=== PATIENT | female | born 2005 | race Caucasian/White ===

== ENCOUNTER 2024-12-15 12:49 | Emergency (ER) | payer OTHER ==
--- NOTE | 2024-12-15 13:06 | EDPHYS ---
Physician Documentation [facility] Name: Vi Haynes Age: 19 yrs Sex: Female : 2005 Arrival Date: 12/15/2024 Time: 12:49 Bed 8 Private MD: ED Physician Mauricio Jara HPI: 12/15 13:02 This 19 yrs old Female presents to ER via EMS with complaints of Abdominal Pain, sp3 Nausea/Vomiting. 13:02 19-year-old female with history of cyclic vomiting syndrome in the past with marijuana sp3 usage now presents with recurrent vomiting. She denies any marijuana use since she is on probation. She was seen at [facility] yesterday and received a full workup including labs and a CT scan of the abdomen pelvis which were negative. EMS gave Reglan and route to the ED here which has resolved her symptoms. She denies any other symptoms and denies headache, fever, URI symptoms, chest pain, shortness breath, back pain, symptoms, [employer] symptoms, , travel history, known sick contacts, or any other signs or symptoms on ROS at this time.. Historical: - Allergies: 13:02 No Known Allergies; ph - Immunization history:: Adult Immunizations up to date. - Infectious Disease History:: Denies. - Social history:: Smoking status: unknown. ROS: 13:05 Constitutional: Negative for fever, chills, and weight loss, Eyes: Negative for injury, sp3 pain, redness, and discharge, ENT: Negative for injury, pain, and discharge, Neck: Negative for injury, pain, and swelling, Cardiovascular: Negative for chest pain, palpitations, and edema, Respiratory: Negative for shortness of breath, cough, wheezing, and pleuritic chest pain, Back: Negative for injury and pain, MS/Extremity: Negative for injury and deformity, Skin: Negative for injury, rash, and discoloration, Neuro: Negative for headache, weakness, numbness, tingling, and seizure, Psych: Negative for depression, anxiety, suicide ideation, homicidal ideation, and hallucinations, Allergy/Immunology: Negative for hives, rash, and allergies, Endocrine: Negative for neck swelling, polydipsia, polyuria, polyphagia, and marked weight changes, 13:05 All other systems are negative, Exam: 13:05 Constitutional: This is a well developed, well nourished patient who is awake, alert, sp3 and in no acute distress. Head/Face: Normocephalic, atraumatic. Eyes: Pupils equal round and reactive to light, extra-ocular motions intact. Lids and lashes normal. Conjunctiva and sclera are non-icteric and not injected. Cornea within normal limits. Periorbital areas with no swelling, redness, or edema. Neck: Trachea midline, no thyromegaly or masses palpated, and no cervical lymphadenopathy. Supple, full range of motion without nuchal rigidity, or vertebral point tenderness. No Meningismus. Chest/axilla: Normal chest wall appearance and motion. Nontender with no deformity. No lesions are appreciated. Cardiovascular: Regular rate and rhythm with a normal S1 and S2. No gallops, murmurs, or rubs. Normal PMI, no JVD. No pulse deficits. Respiratory: Lungs have equal breath sounds bilaterally, clear to auscultation and percussion. No rales, rhonchi or wheezes noted. No increased work of breathing, no retractions or nasal flaring. Back: No spinal tenderness. No costovertebral tenderness. Full range of motion. Skin: Warm, dry with normal turgor. Normal color with no rashes, no lesions, and no evidence of cellulitis. MS/ Extremity: Pulses equal, no cyanosis. Neurovascular intact. Full, normal range of motion. Neuro: Awake and alert, GCS 15, oriented to person, place, time, and situation. Cranial nerves II-XII grossly intact. Motor strength 5/5 in all extremities. Sensory grossly intact. Cerebellar exam normal. Normal gait. Psych: Awake, alert, with orientation to person, place and time. Behavior, mood, and affect are within normal limits. 13:05 Abdomen/GI: Patient still mildly nauseated. No active vomiting. Abdomen soft with no peritoneal signs., Vital Signs: 13:00 BP 128 / 83; Pulse 72; Resp 18; Temp 97.8; Pulse Ox 100% on R/A; Weight 65.77 kg; ph Height 5 ft. 4 in. ; 13:32 BP 118 / 78; Pulse 71; Resp 18; Temp 98; Pulse Ox 99% on R/A; ph 13:00 Body Mass Index 24.89 (65.77 kg, 162.56 cm) ph MDM: 13:02 Medical Screening Exam initiated sp3 13:05 Data reviewed: vital signs, nurses notes, old medical records. ED course: Outside sp3 records reviewed and demonstrate normal CT scan. Differential diagnosis includes cyclic vomiting syndrome versus viral illness versus other. Symptoms resolved with 1 dose of Reglan given by EMS. We will discharge her home on p.o. Reglan and Zofran ODT with follow-up to GI for potential scope. Vital signs are normal.. Administered Medications: No medications were administered Disposition Summary: 12/15/24 13:06 Discharge Ordered Notes: Location: Home sp3 Condition: Stable sp3 Diagnosis - Cyclic vomiting syndrome, vomiting sp3 Followup: sp3 - With: Private Physician - When: Upon discharge from the Emergency Department - Reason: Continuance of care Discharge Instructions: - Discharge Summary Sheet sp3 - Cyclic Vomiting Syndrome, Adult sp3 Forms: - Work release form ph - Family Work Release ph - Medication Reconciliation Form sp3 - Antibiotic Education sp3 - Prescription Opioid Use sp3 - Patient Portal Instructions sp3 - Leadership Thank You Letter sp3 Prescriptions: - Reglan 10 mg Oral Tablet - take 1 tablet ORAL route every 6 hours take 30 minutes before meals and at sp3 bedtime; 20 tablet; Refills: 0, Product Selection Permitted - ondansetron 8 mg Oral Tablet,disintegrating - take 1 tablet ORAL route every 12 hours; 15 tablet; Refills: 0, Product sp3 Selection Permitted Signatures: Rosalinda Blandon, JAMIL RN Mauricio Krishnan MD MD sp3
--- NOTE | 2024-12-15 13:06 | ER ---
Nurse's Notes [facility] Name: Vi Haynes Age: 19 yrs Sex: Female : 2005 Arrival Date: 12/15/2024 Time: 12:49 Bed 8 Private MD: Diagnosis: Cyclic vomiting syndrome, vomiting Presentation: 12/15 13:00 Chief complaint: EMS states: N/V and generalized abdominal pain, seen at [facility] last ph night, dx w/ cyclic vomiting. Coronavirus screen: Vaccine status: Patient reports being unvaccinated. Ebola Screen: No symptoms or risks identified at this time. Initial Sepsis Screen: Does the patient meet any 2 criteria? No. Patient's initial sepsis screen is negative. Does the patient have a suspected source of infection? No. Patient's initial sepsis screen is negative. Risk Assessment: Do you want to hurt yourself or someone else? Patient reports no desire to harm self or others. Onset of symptoms was December 15, 2024. 13:00 Method Of Arrival: EMS: [facility] 13:00 Acuity: LISET 3 ph Triage Assessment: 13:06 General: Appears in no apparent distress. Behavior is calm, cooperative. Pain: Denies ph pain. Neuro: Level of Consciousness is awake, alert, obeys commands, Oriented to person, place, time, situation. Cardiovascular: Capillary refill < 3 seconds in bilateral fingers Patient's skin is warm and dry. Respiratory: Airway is patent Respiratory effort is even, unlabored, Respiratory pattern is regular, symmetrical. GI: Abdomen is round non-distended, Bowel sounds present X 4 quads. Abd is soft X 4 quads Reports nausea, vomiting. Historical: - Allergies: 13:02 No Known Allergies; ph - Immunization history:: Adult Immunizations up to date. - Infectious Disease History:: Denies. - Social history:: Smoking status: unknown. Screenin:04 [facility] ED Fall Risk Assessment (Adult) History of falling in the last 3 months, ph including since admission No falls in past 3 months (0 pts) Confusion or Disorientation No (0 pts) Intoxicated or Sedated No (0 pts) Impaired Gait No (0 pts) Mobility Assist Device Used No (0 pt) Altered Elimination No (0 pt) Score/Fall Risk Level 0 - 2 = Low Risk Oriented to surroundings, Maintained a safe environment, Hourly rounding (assess needs \T\ fall precautionary measures) done. Abuse screen: Denies threats or abuse. Denies injuries from another. Nutritional screening: No deficits noted. Tuberculosis screening: No symptoms or risk factors identified. Assessment: 13:07 General: SEE TRIAGE ASSESSMENT. ph Vital Signs: 13:00 BP 128 / 83; Pulse 72; Resp 18; Temp 97.8; Pulse Ox 100% on R/A; Weight 65.77 kg; ph Height 5 ft. 4 in. ; 13:32 BP 118 / 78; Pulse 71; Resp 18; Temp 98; Pulse Ox 99% on R/A; ph 13:00 Body Mass Index 24.89 (65.77 kg, 162.56 cm) ph ED Course: 12:58 Patient arrived in ED. ph 13:02 Triage completed. ph 13:02 Mauricio Jara MD is Attending Physician. sp3 13:04 Arm band placed on Patient placed in an exam room. ph 13:06 Patient has correct armband on for positive identification. Bed in low position. Call ph light in reach. Side rails up X 1. Pulse ox on. NIBP on. 13:07 Maintain EMS IV. Dressing intact. Good blood return noted. Site clean \T\ dry. Gauge \T\ ph site: 20 LAC. Flushed with 10 mL NS. 13:26 Rosalinda Blandon, RN is Primary Nurse. ph 13:32 No provider procedures requiring assistance completed. IV discontinued, intact, ph bleeding controlled, No redness/swelling at site. Pressure dressing applied. Administered Medications: No medications were administered Medication: 13:06 VIS not applicable for this client. ph Outcome: 13:06 Discharge ordered by . sp3 13:32 Discharged to home ambulatory, with family, ph 13:32 Condition: good 13:32 Discharge instructions given to patient, Instructed on discharge instructions, follow up and referral plans. medication usage, Demonstrated understanding of instructions, follow-up care, medications, Prescriptions given X 2, 13:33 Patient left the ED. ph Signatures: Rosalinda Blandon, RN RN ph Mauricio Jara MD MD sp3
[2024-12-15 14:18] VITALS: BP 118/78; TEMP 98; O2SAT 99
== END 2024-12-15 13:33 | disposition home or self-care (01) ==
LOC: ER 12:49
DX: R11.15 Cyclical vomiting syndrome unrelated to migraine (principal)
CPT/HCPCS: 99284

== ENCOUNTER 2025-01-27 08:59 | Emergency (ER) | payer OTHER ==
--- OUTSIDE RECORDS SUMMARY | 2025-01-27 09:04 | XMS REPORT | Continuity of Care Document ---
Author Name Unknown Address [address] [facility] [address] [place] [address] [facility] [place] Address [address] [facility] [address] [place] [address] Care Team Providers Care Egg Trayer Name Role Phone JOSE LUIS CHRISTINE, PREETHI Harris Primary Care Physician GATITO YOON Attending Clinician Unavailable KEITH DESIR Attending Clinician Unavailab THERON Hernandez Attending Clinician UnavailDANNA Arrington Attending Clinician Unavailable Kwan_Alex Attending Clinician Unavailable Kena Attending Clinician Unavailable TATYNAA MARES-Lizandro Attending Clinician UnaDAV Yates Attending Clinician Unavailable DEB MOON Attending Clinician Unavailable NILAY SHEPHERD M.D. Attending Clinician Lesa LARISSA Sosa Attending Clinician Unavailable GAMAL LEÓN Attending Clinician Unavailab RAYSHAWN Romero Attending Clinician Unavailable JULES NORTON Attending Clinician Unavailable Eduardo YU Attending Clinician Unavailable MARIOLA MORALES Attending Clinician UnavailLEO Pisano Attending Clinician Unavailable Sarabjit Admitting Clinician Unavailable Shield Admitting Clinician Unavailable Payers Payer Name Policy Type Policy Number Effective Date Expirati on Date Source [facility] [place] [id number] Problems Condition Name Condition Details Condition Category Status Onset Date Resolution Date Last Treatment Date Treating Clinician Comments Source Right lower quadrant pain Right Lower Quadrant Pain Problem Active 2-14 00:00: [facility] Fever with chills Fever with Chills Problem Active 2-13 00:00: 00 [facility] Nausea and vomiting Nausea and Vomiting Problem Active 2-13 00:00: 00 [facility] Right lower quadrant pain Right Lower Quadrant Pain Problem Active 2-13 00:00: 00 [facility] High ankle sprain of right lower extremity, initial encounter High ankle sprain of right lower extremity, initial encounter Problem [id number] Active [facility] Finding of tobacco use and exposure (finding) Finding of tobacco use and exposure (finding) Active Problem 10/12/2019 Medical Group Problem Active 2019-10-12 22:41:06 Bridget Tam Patient encounter status (finding) Patient encounter status (finding) Active Problem 10/12/2019 Medical Group Problem Active 2019-10-12 22:41:06 Bridget Tam Alcoholic gastritis without bleeding Problem [facility] Contusion of right forearm Problem [facility] Contusion of right hand, initial encounter Problem [facility] Cyclic vomiting syndrome Problem [facility] Dermatitis Problem [facility] Closed fracture of distal end of left radius Problem [facility] Molluscum contagiosu m infection Problem [facility] Sprain of ankle Problem [facility] Moderate tetrahydro cannabinol (THC) dependence Problem [facility] Pneumonia (disorder) Pneumonia (disorder) Resolved 03/15/2014 Problem 10/12/2019 Data migrated from [employer] on 05/05/15.<b r/>Data migrated from [employer] on 05/04/15. Medical Group Problem Resolve d 03-15 00:00: 00 2019-10-12 22:41:06 2019-10-12 22:41:06 Bridget Tam History of Past Illness Condition Name Condition Details Condition Category Status Onset Date Resolution Date Last Treatment Date Treating Clinician Comments Source Tobacco use Tobacco use 11/02/2018 05/23/2019 Medical Group Problem 11-02 22:47: 00 2019-05-23 12:33:15 2019-05-23 12:33:15 Bridget Tam Encounter for initial prescripti on of injectable contracept marcus Encounter for initial prescripti on of injectable contracept marcus 11/02/2018 05/23/2019 Medical Group Problem 11-02 22:29: 00 2019-05-23 12:33:15 2019-05-23 12:33:15 Bridget Tam Encounter for surveillan ce of injectable contracept marcus Encounter for surveillan ce of injectable contracept marcus 01/27/2019 9 Medical Group Problem 4-11 19:07: 00 2019-01-29 21:19:42 2019-01-29 21:19:42 Bridget Tam Allergies, Adverse Reactions, Alerts Allergy Name Allergy Type Status Severity Reaction(s) Onset Date Inactive Date Treating Clinician Comments Source No Known Medicati on Allergie s No Known Medicati on Allergie s Active Bridget Tam Social History Social Habit Start Date Stop Date Quantity Comments Source History of tobacco use [facility] Social History 2018-11-02 21:52:38 2018-11-02 21:52:38 Edwin Tam Smoking Status Start Date Stop Date Source Former Smoker [facility] Never smoked tobacco (finding) [facility] Medications Ordered Medication Name Filled Medication Name Start Date Stop Date Current Medication? Ordering Clinician Indication Dosage Frequency Signature (SIG) Comments Components Source Ondansetron Hcl (Zofran *) 4 Mg TAB Ondansetron Hcl (Zofran *) 4 Mg TAB 11-15 13:47: 00 Yes 1 [facility] [employer] a 2018-10 20:17: 00 No 150 mg, Route: IM, Drug form: SUSP, ONCE, Dosing Weight 82.727, kg, Start date: 07/25/19 15:17:00 CDT, Stop date: 07/25/19 15:17:00 CDT Bridget Tam Medroxyprog esterone 04-22 14:21: 00 No 150 mg, Route: IM, Drug form: SUSP, ONCE, Dosing Weight 77.273, kg, Start date: 04/22/19 9:21:00 CDT, Stop date: 04/22/19 9:21:00 CDT Bridget Tam [employer] 01-27 19:09: 00 No 150 mg, Route: IM, Drug form: SUSP, ONCE, Dosing Weight 75.455, kg, Start date: 01/27/19 14:09:00 CDT, Stop date: 01/27/19 14:09:00 CDT Bridget Tam clindamycin 300 mg oral capsule 12-06 21:53: 00 Yes 300 mg = 1 cap, PO, TID, X 10 day, # 30 cap, 0 Refill(s), Pharmacy: [facility] [address] [place], [place] [address]isra parker [place] {21 (Methylpred nisolone 4 MG Oral Tablet [Medrol]) } Pack [Medrol Dosepak] 12-06 21:53: 00 Yes See Instructio ns, as directed on package labeling, # 1 ea, 0 Refill(s), Pharmacy: [facility] [address] [place], [place] [address]isra Tam 24 HR dexmethylph enidate hydrochlori de 25 MG Extended Release Capsule [Focalin] 11-17 23:33: 00 Yes 25 mg = 1 cap, PO, QAM, # 30 cap, 0 Refill(s), given to patient Bridget Souzaann {21 (Methylpred nisolone 4 MG Oral Tablet [Medrol]) } Pack [Medrol Dosepak] 11-17 17:18: 00 No See Instructio ns, PO, Take by mouth as directed on label., # 1 Pack, 0 Refill(s), Pharm[facility]: [facility] Bacitracin (Topical) (Bacitracin ) 500 Unit/Gm OIN Bacitracin (Topical) (Bacitracin ) 500 Unit/Gm OIN 11-12 15:08: 00 Yes 1 [facility] Desonide (Desowen 0.05%) 0.05 % CRE Desonide (Desowen 0.05%) 0.05 % CRE 11-12 15:06: 00 Yes 1 [facility] Hydroxyzine Hcl (Atarax 25 Mg*) 25 Mg TAB Hydroxyzine Hcl (Atarax 25 Mg*) 25 Mg TAB 11-12 15:06: 00 Yes 25 [facility] Methylpredn isolone (Medrol Dosepak *) 1 Pkt PKT Methylpredn isolone (Medrol Dosepak *) 1 Pkt PKT 11-12 15:06: 00 Yes 1 [facility] [employer] a 11-02 22:30: 00 No 150 mg, Route: IM, Drug form: SUSP, ONCE, Dosing Weight 72.273, kg, Start date: 11/02/18 16:30:00 [employer], Stop date: 11/02/18 16:30:00 [employer] Bridget Tam 24 HR dexmethylph enidate hydrochlori de 20 MG Extended Release Capsule [Focalin] 2017-10 15:14: 00 No 20 mg = 1 cap, PO, QAM, # 30 cap, 0 Refill(s), given to patient Bridget Tam Cetirizine Hcl Cetirizine Hcl 2017-10 17:05: 00 Yes [facility] Norgestimat e/Ethinyl Est * (Sprintec 0.25/0.035 Mg*) 28 Day TAB Norgestimat e/Ethinyl Est * (Sprintec 0.25/0.035 Mg*) 28 Day TAB 2017-10 17:05: 00 Yes [facility] {21 (Ethinyl Estradiol 0.035 MG / norgestimat e 0.25 MG Oral Tablet) / 7 (Inert Ingredients 1 MG Oral Tablet) } Pack [Sprintec 28 Day] 2017-10 21:08: 00 No 1 tab, PO, Daily, # 28 tab, 6 Refill(s), Pharmacy: [facility] [address] Bridget Tam cetirizine 10 mg oral tablet 2017-10 19:50: 00 Yes 10 mg = 1 tab, PO, Daily, # 30 tab, 3 Refill(s), Pharmacy: [facility] 140[address] Bridget Tam montelukast 10 mg oral tablet 2017-10 19:49: 00 Yes 10 mg = 1 tab, PO, Bedtime, # 30 tab, 3 Refill(s), Pharmacy: [facility] 140 Bridget Tam Claritin 2017-10 19:32: 00 Yes Daily, 0 Refill(s) Bridget Tam Zyrtec 2017-10 19:32: 00 Yes Daily, 0 Refill(s) Bridget Tam Mupirocin 0.02 MG/MG Topical Ointment 01-05 14:47: 00 No 1 appl, TOP, TID, X 5 day, # 30 gm, 0 Refill(s), Pharmacy: [facility] 140 Bridget Tam spinosad 9 MG/ML Medicated Shampoo [Natroba] 12-24 14:56: 00 Yes See Instructio ns, APPLY TOPICALLY ONCE DAILY. LEAVE ON HAIR FOR 10 MINUTES. REPEAT IN 1 WEEK., # 120 mL, 1 Refill(s), VINOD, Pharmacy: [facility] 140[address] Bridget Tam Benzoyl Peroxide 0.05 MG/MG Topical Gel 11-18 21:49: 00 Yes 1 appl, TOP, BID, # 60 gm, 1 Refill(s), Pharmacy: [facility] 140[address] Bridget Tam Sudafed 11-18 20:44: 00 Yes PO, Q6H, 0 Refill(s) Bridget Tam Ibuprofen 11-18 20:44: 00 Yes 0 Refill(s) Bridget Tam Salicylic Acid 170 MG/ML Topical Solution 2016-10 21:48: 00 Yes 1 appl, TOP, Daily, Apply 1 drop to cover wart. Let dry. Repeat once daily until wart is removed, # 15 ml, 0 Refill(s), Pharmacy: [facility] 1405 Bridget Tam adapalene 0.001 MG/MG / Benzoyl Peroxide 0.025 MG/MG Topical Gel [Epiduo] 2016-10 21:47: 00 Yes 1 appl, TOP, Daily, # 45 gm, 1 Refill(s), [facility] Multiple Vitamin (Daily Vitamin) Vitamin TAB Multiple Vitamin (Daily Vitamin) Vitamin TAB 10-28 12:57: 00 Yes 1 [facility] medroxyprog esterone 150 mg/mL intramuscul ar syringe INJECT 1 ML (150 MG TOTAL) INTO THE SHOULDER, THIGH, OR BUTTOCKS EVERY 3 (THREE) MONTHS medroxyprog esterone 150 mg/mL intramuscul ar syringe INJECT 1 ML (150 MG TOTAL) INTO THE SHOULDER, THIGH, OR BUTTOCKS EVERY 3 (THREE) MONTHS No medroxypro gesterone 150 mg/mL intramuscu lar syringe INJECT 1 ML (150 MG TOTAL) INTO THE SHOULDER, THIGH, OR BUTTOCKS EVERY 3 (THREE) MONTHS [facility] atorvastati n 10 mg tablet Take 1 tablet every day by oral route. atorvastati n 10 mg tablet Take 1 tablet every day by oral route. No 1 Q1D atorvastat in 10 mg tablet Take 1 tablet every day by oral route. [facility] ondansetron 4 mg disintegrat ing tablet Place 1 tablet every 4 hours by translingua l route as needed for 3 days. ondansetron 4 mg disintegrat ing tablet Place 1 tablet every 4 hours by translingua l route as needed for 3 days. No 1 Q4H ondansetro n 4 mg disintegra ting tablet Place 1 tablet every 4 hours by translingu al route as needed for 3 days. [facility] amoxicillin 500 mg capsule TAKE 1 CAPSULE BY MOUTH THREE TIMES A DAY FOR 7 DAYS amoxicillin 500 mg capsule TAKE 1 CAPSULE BY MOUTH THREE TIMES A DAY FOR 7 DAYS No amoxicilli n 500 mg capsule TAKE 1 CAPSULE BY MOUTH THREE TIMES A DAY FOR 7 DAYS [facility] amoxicillin 875 mg tablet TAKE 1 TABLET EVERY 12 HOURS BY ORAL ROUTE DIRECTED FOR 14 DAYS. amoxicillin 875 mg tablet TAKE 1 TABLET EVERY 12 HOURS BY ORAL ROUTE DIRECTED FOR 14 DAYS. No amoxicilli n 875 mg tablet TAKE 1 TABLET EVERY 12 HOURS BY ORAL ROUTE DIRECTED FOR 14 DAYS. [facility] benzonatate 200 mg capsule TAKE 1 CAPSULE BY MOUTH EVERY 6 HOURS NEEDED COUGH benzonatate 200 mg capsule TAKE 1 CAPSULE BY MOUTH EVERY 6 HOURS NEEDED COUGH No benzonatat e 200 mg capsule TAKE 1 CAPSULE BY MOUTH EVERY 6 HOURS NEEDED COUGH [facility] Loryna (28) 3 mg-0.02 mg tablet TAKE 1 TABLET BY MOUTH 1 TIME EACH DAY. Loryna (28) 3 mg-0.02 mg tablet TAKE 1 TABLET BY MOUTH 1 TIME EACH DAY. No Loryna (28) 3 mg-0.02 mg tablet TAKE 1 TABLET BY MOUTH 1 TIME EACH DAY. [facility] methylpredn isolone 4 mg tablets in a dose pack TAKE 6 TABLETS ON DAY 1 DIRECTED ON PACKAGE AND DECREASE BY 1 TAB EACH DAY FOR A TOTAL OF 6 DAYS methylpredn isolone 4 mg tablets in a dose pack TAKE 6 TABLETS ON DAY 1 DIRECTED ON PACKAGE AND DECREASE BY 1 TAB EACH DAY FOR A TOTAL OF 6 DAYS No methylpred nisolone 4 mg tablets in a dose pack TAKE 6 TABLETS ON DAY 1 DIRECTED ON PACKAGE AND DECREASE BY 1 TAB EACH DAY FOR A TOTAL OF 6 DAYS [facility] metoclopram mckenna 10 mg tablet TAKE ONE TABLET BY MOUTH EVERY 6 HOURS: TAKE 30 MINUTES BEFORE MEALS AND AT BED TIME metoclopram mckenna 10 mg tablet TAKE ONE TABLET BY MOUTH EVERY 6 HOURS: TAKE 30 MINUTES BEFORE MEALS AND AT BED TIME No metoclopra mide 10 mg tablet TAKE ONE TABLET BY MOUTH EVERY 6 HOURS: TAKE 30 MINUTES BEFORE MEALS AND AT BED TIME [facility] ondansetron HCl 8 mg tablet TAKE ONE TABLET BY MOUTH EVERY 12 HOURS ondansetron HCl 8 mg tablet TAKE ONE TABLET BY MOUTH EVERY 12 HOURS No ondansetro n HCl 8 mg tablet TAKE ONE TABLET BY MOUTH EVERY 12 HOURS [facility] terbinafine HCl 250 mg tablet TAKE 1 TABLET BY MOUTH EVERY DAY FOR 3 MONTHS terbinafine HCl 250 mg tablet TAKE 1 TABLET BY MOUTH EVERY DAY FOR 3 MONTHS No terbinafin e HCl 250 mg tablet TAKE 1 TABLET BY MOUTH EVERY DAY FOR 3 MONTHS [facility] Immunizations Ordered Immunization Name Filled Immunization Name Date Status Comments Source meningococcal MCV4P meningococcal MCV4P 10:31:00 Completed [facility] diphtheria/pertussis , acel/tetanus adult Unknown Completed [facility] meningococcal conjugate vaccine Unknown Completed [facility] influenza virus vaccine, inactivated Unknown Completed [facility] hepatitis B pediatric vaccine Unknown Completed [facility] human papillomavirus vaccine Unknown Completed [facility] influenza vaccine-unspecified< sup>1</sup> Unknown Completed [facility] varicella virus vaccine<sup>2</sup> Unknown Completed [facility] hepatitis A vaccine<sup>4</sup> Unknown Completed [facility] measles/mumps/rubell a virus vaccine<sup>6</sup> Unknown Completed [facility] measles/mumps/rubell a virus vaccine<sup>2</sup> Unknown Completed [facility] varicella virus vaccine<sup>4</sup> Unknown Completed [facility] hepatitis A vaccine<sup>6</sup> Unknown Completed [facility] diphth/pertussis, acellular/tetanus<lawson p>8</sup> Unknown Completed [facility] poliovirus vaccine, inactivated Unknown Completed [facility] hepatitis A vaccine<sup>5</sup> Unknown Completed [facility] hepatitis A vaccine<sup>7</sup> Unknown Completed [facility] varicella virus vaccine<sup>3</sup> Unknown Completed [facility] pneumococcal vaccine<sup>13</sup> Unknown Completed [facility] varicella virus vaccine<sup>5</sup> Unknown Completed [facility] diphth/pertussis, acellular/tetanus<lawson p>9</sup> Unknown Completed [facility] measles/mumps/rubell a virus vaccine<sup>7</sup> Unknown Completed [facility] pneumococcal vaccine<sup>14</sup> Unknown Completed [facility] measles/mumps/rubell a virus vaccine<sup>3</sup> Unknown Completed [facility] haemophilus b vaccine<sup>17</sup> Unknown Completed [facility] hepatitis B vaccine<sup>21</sup> Unknown Completed [facility] haemophilus b vaccine<sup>18</sup> Unknown [facility] diphth/pertussis, acellular/tetanus<lawson p>10</sup> Unknown Completed [facility] pneumococcal vaccine<sup>15</sup> Unknown Completed [facility] haemophilus b vaccine<sup>19</sup> Unknown Completed [facility] diphth/pertussis, acellular/tetanus<lawson p>11</sup> Unknown Completed [facility] pneumococcal vaccine<sup>16</sup> Unknown Completed [facility] haemophilus b vaccine<sup>20</sup> Unknown Completed [facility] diphth/pertussis, acellular/tetanus<lawson p>12</sup> Unknown Completed [facility] hepatitis B vaccine<sup>22</sup> Unknown Completed [facility] hepatitis B vaccine<sup>23</sup> Unknown Completed [facility] diphtheria/pertussis , acel/tetanus adult Unknown Completed [facility] meningococcal conjugate vaccine Unknown Completed [facility] influenza virus vaccine, inactivated Unknown Completed [facility] hepatitis B pediatric vaccine Unknown Completed [facility] human papillomavirus vaccine Unknown Completed [facility] influenza vaccine-unspecified< sup>1</sup> Unknown Completed [facility] varicella virus vaccine<sup>2</sup> Unknown Completed [facility] hepatitis A vaccine<sup>4</sup> Unknown Completed [facility] measles/mumps/rubell a virus vaccine<sup>6</sup> Unknown Completed [facility] measles/mumps/rubell a virus vaccine<sup>2</sup> Unknown Completed [facility] varicella virus vaccine<sup>4</sup> Unknown Completed [facility] hepatitis A vaccine<sup>6</sup> Unknown Completed [facility] diphth/pertussis, acellular/tetanus<lawson p>8</sup> Unknown Completed [facility] poliovirus vaccine, inactivated Unknown Completed [facility] hepatitis A vaccine<sup>5</sup> Unknown Completed [facility] hepatitis A vaccine<sup>7</sup> Unknown Completed [facility] varicella virus vaccine<sup>3</sup> Unknown Completed [facility] pneumococcal vaccine<sup>13</sup> Unknown Completed [facility] varicella virus vaccine<sup>5</sup> Unknown Completed [facility] diphth/pertussis, acellular/tetanus<lawson p>9</sup> Unknown Completed [facility] measles/mumps/rubell a virus vaccine<sup>7</sup> Unknown Completed [facility] pneumococcal vaccine<sup>14</sup> Unknown Completed [facility] measles/mumps/rubell a virus vaccine<sup>3</sup> Unknown [facility] haemophilus [facility] vaccine<sup>17</sup> Unknown Completed [facility] Hx hepatitis B vaccine<sup>21</sup> Unknown Completed [facility] [place] Hx haemophilus b vaccine<sup>18</sup> Unknown Completed [facility] [place] Hx diphth/pertussis, acellular/tetanus<lawson p>10</sup> Unknown Completed [facility] Hx pneumococcal vaccine<sup>15</sup> Unknown Completed [facility] Hx haemophilus b vaccine<sup>19</sup> Unknown Completed [facility] Hx diphth/pertussis, acellular/tetanus<lawson p>11</sup> Unknown Completed [facility] Hx pneumococcal vaccine<sup>16</sup> Unknown Completed [facility] Hx haemophilus b vaccine<sup>20</sup> Unknown Completed [facility] Hx diphth/pertussis, acellular/tetanus<lawson p>12</sup> Unknown Completed [facility] hepatitis B vaccine<sup>22</sup> Unknown Completed [facility] Hx hepatitis B vaccine<sup>23</sup> Unknown Completed [facility] Vital Signs Vital Name Observation Time Observation Value Comments S ource Height 2024-12-15 01:43:[address] [facility] Weight 2024-12-15 01:43:00 68.573707 kg [facility] BMI (Body Mass Index) 2024-12-15 01:43:00 24.2 kg/m2 [facility] Height 2024-12-02 00:00:00 68 [in_i] [facility] Body Weight 2024-12-02 00:00:00 2544 [oz_av] [facility] BP Systolic 2024-12-02 00:00:00 116 mm[Hg] [facility] BP Diastolic 2024-12-02 00:00:00 78 mm[Hg] [facility] BMI (Body Mass Index) 2024-12-02 00:00:00 24.2 kg/m2 [facility] Height 2024-12-01 00:00:00 68 [in_i] [facility] BMI (Body Mass Index) 2024-12-01 00:00:00 24 kg/m2 [facility] BP Systolic 2024-12-01 00:00:00 120 mm[Hg] [facility] BP Diastolic 2024-12-01 00:00:00 86 mm[Hg] [facility] Body Weight 2024-12-01 00:00:00 2523.2 [oz_av] [facility] BP Diastolic 2022-08-25 00:00:00 70 mm[Hg] [facility] Height 2022-08-25 00:00:00 68 [in_i] [facility] BMI (Body Mass Index) 2022-08-25 00:00:00 25.5 kg/m2 [facility] BP Systolic 2022-08-25 00:00:00 116 mm[Hg] [facility] Body Weight 2022-08-25 00:00:00 2680 [oz_av] [facility] BP Diastolic 2019-11-22 00:00:00 66 mm[Hg] [facility] Height 2019-11-22 00:00:00 68 [in_i] [facility] BMI (Body Mass Index) 2019-11-22 00:00:00 29.2 kg/m2 [facility] BP Systolic 2019-11-22 00:00:00 118 mm[Hg] [facility] Body Weight 2019-11-22 00:00:00 3072 [oz_av] [facility] BP Diastolic 2019-07-26 00:00:00 70 mm[Hg] [facility] Height 2019-07-26 00:00:00 68 [in_i] [facility] BMI (Body Mass Index) 2019-07-26 00:00:00 27.5 kg/m2 [facility] BP Systolic 2019-07-26 00:00:00 113 mm[Hg] [facility] Body Weight 2019-07-26 00:00:00 2896 [oz_av] [facility] BP Diastolic 2018-10-28 00:00:00 74 mm[Hg] [facility] BP Systolic 2018-10-28 00:00:00 110 mm[Hg] [facility] Body Weight 2018-10-28 00:00:00 2800 [oz_av] [facility] Height 2018-10-26 00:00:00 67 [in_i] [facility] BMI (Body Mass Index) 2018-10-26 00:00:00 27.4 kg/m2 [facility] Body Weight 2018-10-26 00:00:00 175 [lb_av] [facility] Height 2018-10-13 00:00:00 67 [in_i] [facility] BMI (Body Mass Index) 2018-10-13 00:00:00 27.4 kg/m2 [facility] Body Weight 2018-10-13 00:00:00 2800 [oz_av] [facility] Diastolic (mm Hg) 2019-07-25 20:16:00 [facility] [place] Heart Rate 2019-07-25 20:16:00 [facility] Temperature Oral (F) 2019-07-25 20:16:00 98.2 F [facility] [place] Weight 2019-07-25 20:16:00 [facility] [place] Systolic (mm Hg) 2019-07-25 20:16:00 [facility] Weight 2019-04-22 14:04:00 [facility] [place] Systolic (mm Hg) 2019-04-22 14:04:00 [facility] Diastolic (mm Hg) 2019-04-22 14:04:00 [facility] Temperature Oral (F) 2019-04-22 14:04:00 98.5 F [facility] Heart Rate 2019-04-22 14:04:00 [facility] BMI Calculated 2019-01-27 18:48:00 [facility] Weight 2019-01-27 18:48:00 [facility] [place] Height 2019-01-27 18:48:00 165.1 cm [facility] [place] Heart Rate 2019-01-27 18:48:00 [facility] [place] Systolic (mm Hg) 2019-01-27 18:48:00 [facility] Diastolic (mm Hg) 2019-01-27 18:48:00 [facility] BMI Calculated 2019-01-20 18:07:00 [facility] [place] Weight 2019-01-20 18:07:00 [facility] Height 2019-01-20 18:07:00 166.37 cm [facility] [place] Respitory Rate 2019-01-20 18:07:00 [facility] Heart Rate 2019-01-20 18:07:00 [facility] [place] Systolic (mm Hg) 2019-01-20 18:07:00 [facility] Diastolic (mm Hg) 2019-01-20 18:07:00 [facility] [place] Systolic (mm Hg) 2018-12-06 21:24:00 [facility] [place] Diastolic (mm Hg) 2018-12-06 21:24:00 [facility] [place] Heart Rate 2018-12-06 21:24:00 [facility] [place] Respitory Rate 2018-12-06 21:24:00 [facility] [place] Weight 2018-12-06 21:24:00 [facility] Systolic (mm Hg) 2018-11-17 16:36:00 [facility] Diastolic (mm Hg) 2018-11-17 16:36:00 [facility] [place] Heart Rate 2018-11-17 16:36:00 [facility] [place] Respitory Rate 2018-11-17 16:36:00 [facility] Height 2018-11-17 16:36:00 166.37 cm [facility] [place] Weight 2018-11-17 16:36:00 [facility] BMI Calculated 2018-11-17 16:36:00 [facility] [place] BMI Calculated 2018-11-02 21:51:00 [facility] [place] Weight 2018-11-02 21:51:00 [facility] Systolic (mm Hg) 2018-11-02 21:51:00 [facility] Diastolic (mm Hg) 2018-11-02 21:51:00 [facility] Height 2018-11-02 21:51:00 165.1 cm [facility] Heart Rate 2018-11-02 21:51:00 [facility] [place] Weight 2018-09-22 14:31:00 [facility] [place] BMI Calculated 2018-09-22 14:31:00 [facility] Heart Rate 2018-09-22 14:31:00 [facility] Height 2018-09-22 14:31:00 165.1 cm [facility] [place] Systolic (mm Hg) 2018-09-22 14:31:00 [facility] [place] Diastolic (mm Hg) 2018-09-22 14:31:00 [facility] [place] BMI Calculated 2018-08-04 20:32:00 [facility] [place] Height 2018-08-04 20:32:00 165.1 cm [facility] Weight 2018-08-04 20:32:00 [facility] [place] Systolic (mm Hg) 2018-08-04 20:32:00 [facility] Diastolic (mm Hg) 2018-08-04 20:32:00 [facility] [place] Heart Rate 2018-08-04 20:32:00 [facility] BMI Calculated 2018-08-04 19:26:00 [facility] Weight 2018-08-04 19:26:00 [facility] [place] Height 2018-08-04 19:26:00 165.74 cm [facility] Systolic (mm Hg) 2018-08-04 19:26:00 [facility] [place] Diastolic (mm Hg) 2018-08-04 19:26:00 [facility] Heart Rate 2018-08-04 19:26:00 [facility] [place] Temperature Oral (F) 2018-08-04 19:26:00 98.9 F [facility] Weight 2018-01-05 14:09:00 [facility] Heart Rate 2018-01-05 14:09:00 [facility] Systolic (mm Hg) 2018-01-05 14:09:00 [facility] Diastolic (mm Hg) 2018-01-05 14:09:00 [facility] Weight 2017-11-18 20:43:00 [facility] [place] Heart Rate 2017-11-18 20:43:00 [facility] [place] Systolic (mm Hg) 2017-11-18 20:43:00 [facility] [place] Diastolic (mm Hg) 2017-11-18 20:43:00 [facility] [place] BMI Calculated 2017-09-02 19:20:00 [facility] [place] Weight 2017-09-02 19:20:00 [facility] Height 2017-09-02 19:20:00 166.37 cm [facility] [place] Heart Rate 2017-09-02 19:20:00 [facility] [place] Systolic (mm Hg) 2017-09-02 19:20:00 [facility] [place] Diastolic (mm Hg) 2017-09-02 19:20:00 [facility] Procedures Procedure Date / Time Performed Performing Clinician Source CT, abdomen + pelvis, w/ contrast 2024-12-01 00:00:00 [facility] TYMPANOMETRY 2018-10-26 00:00:00 [facility] [U] XRAY ANKLE MIN 3 VWS RIGHT 74365 2018-01-06 00:00:00 [facility] Encounters Start Date/Time End Date/Time Encounter Type Admission Type Attending Clinicians Care Facility Care Department Encounter ID Source 2024-12-15 01:36:00 2024-12-15 04:15:00 Emergency ER GATITO YOON [facility] [id number] [facility] 2024-12-15 01:36:00 2024-12-15 04:15:00 Departed Emergency Room [facility] [id number] [facility] 2024-12-02 00:00:00 2024-12-02 00:00:00 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 MMG [facility] [id number] [facility] 2023-11-15 09:03:00 2023-11-15 13:59:00 Emergency ER DOUGTHREON PRIDE [facility] [id number] [facility] 2023-07-25 11:56:00 2023-07-25 11:56:00 Outpatient DANNA VILLA [facility] [id number] [facility] 2022-08-25 09:50:00 2022-08-25 09:50:00 Outpatient KEITH HENDRICKS [facility] [id number] [facility] 2022-08-25 00:00:00 2022-08-25 00:00:00 Outpatient Sarabjit [facility] [id number] [facility] 2022-08-25 00:00:00 2022-08-25 00:00:00 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 MMG [facility] [id number] [facility] 2022-08-22 00:00:00 2022-08-22 00:00:00 Outpatient Shield [facility] [id number] [facility] 2020-09-05 00:00:00 2020-09-05 00:00:00 Outpatient Shield [facility] MMG [id number] [facility] 2020-01-03 12:06:00 2020-01-03 12:06:00 Outpatient Shield [facility] MM[facility] [id number] [facility] 2019-12-08 05:21:00 2019-12-08 05:21:00 Outpatient Shield [facility] [id number] [facility] 2019-11-23 04:24:00 2019-11-23 04:24:00 Outpatient Shield [facility] 204 [facility] 2019-11-22 00:00:00 2019-11-22 00:00:[address] MD: [address] [address] , Ph. [facility] 203 [facility] 2019-10-10 21:00:00 2019-10-10 21:00:00 Ambulatory Pre-Reg nullFlavo r [facility] [id number] Bridget Tam 2019-07-25 20:00:00 2019-07-26 04:59:59 Outpatient nullFlavo r [facility] [id number] Bridget Tam 2019-07-26 00:00:00 2019-07-26 00:00:[address] MD: [address] [address] , Ph. [facility] [id number] 1008 [facility] 2019-04-22 14:00:00 2019-04-23 04:59:59 Outpatient nullFlavo r [facility] [place] [id number] Bridget Tam 2019-03-12 12:34:00 2019-03-12 12:34:00 Outpatient CHAVO MARES TATYANA [facility] [id number] [facility] 2019-01-27 19:00:00 2019-01-28 04:59:59 Outpatient nullFlavo r [facility] [facility] [place] [id number] Bridget Tam 2019-01-20 18:15:00 2019-01-21 04:59:59 Outpatient nullFlavo r [facility] [id number] Bridget Tam 2018-12-21 18:28:00 2018-12-23 05:59:59 Phone Message nullFlavo r [facility] [id number] Bridget parker [facility] 2018-12-06 21:15:00 2018-12-07 05:59:59 Outpatient nullFlavo r [facility] [id number] Bridget parker [facility] 2018-11-17 16:30:00 2018-11-18 05:59:59 Outpatient nullFlavo r [facility] [id number] Vashtiisra keith Tam 2018-11-12 14:19:00 2018-11-12 15:16:00 Emergency ER DAV GOLDMAN [facility] [id number] [facility] 2018-11-02 22:00:00 2018-11-03 05:59:59 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 [facility] 0110 [facility] 2018-10-26 00:00:00 2018-10-26 00:00:00 Leo Vásquez MD: [address], [address], [place] [address] , Ph. [facility] Otolaryngol ogy-MOB 0108 [facility] 2018-10-13 20:58:00 2018-10-15 05:59:59 Phone Message nullFlavo r [facility] [id number] Bridget Tam 2018-10-13 00:00:00 2018-10-13 00:00:[address] MD: [address], [address], [place] [address] , Ph. 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 ANDERSON, TERRENCE, M.D. [facility], [address] [id number] [facility] 2018-01-06 15:00:00 2018-01-06 15:00:00 Appointmen t; NILAY SHEPHERD M.D. ANDERSON, TERRENCE, M.D. [facility], [address] [id number] [facility] 2018-01-05 15:00:00 2018-01-06 04:59:59 Outpatient nullFlavo r [facility] [id number] [facility] [place] 2018-01-04 13:19:00 2018-01-06 04:59:59 Phone Message nullFlavo r [facility] [id number] Vashtiisra keith Tam 2017-12-31 16:27:00 2017-12-31 18:19:00 Emergency ER LARISSA MOTLEY [facility] [id number] [facility] 2017-12-23 22:39:00 2017-12-25 05:59:59 Phone Message nullFlavo r [facility] [id number] Bridget Tam 2017-11-18 21:00:00 2017-11-19 05:59:59 Outpatient nullFlavo r [facility] [id number] Bridget Tam 2017-09-02 19:00:00 2017-09-03 05:59:59 Outpatient nullFlavo r [facility] [id number] Bridget Tam 2016-12-08 10:00:00 2016-12-08 10:00:00 Outpatient MHIE MHIE [id number] Bridget Souzaann 2016-06-19 08:15:00 2016-06-19 08:15:00 Outpatient MHIE MHIE [id number] Bridget Souzaann 2015-12-19 15:30:00 2015-12-19 15:30:00 Outpatient MHIE MHIE [id number] Bridget Souzaann 2015-11-21 14:15:00 2015-11-21 14:15:00 Outpatient MHIE MHIE [id number] Bridget parker [place] 2014-10-28 12:45:00 2014-10-28 14:38:00 Emergency ER JAYLATRINH GAMAL [facility] [id number] [facility] 2014-06-05 12:40:00 2014-06-05 14:38:00 Emergency ER RAYSHAWN CHANG [facility] [id number] [facility] 2010-03-10 17:19:00 2010-03-10 19:00:00 Emergency ER CIERRA, JULES [facility] [id number] [facility] 2008-06-14 10:06:00 2008-06-14 10:06:00 Outpatient Eduardo CASTILLO [facility] [id number] [facility] 2008-06-11 17:01:00 2008-06-11 20:00:00 Emergency ER MARIOLA MORALES [facility] [id number] [facility] 2007-08-09 05:57:00 2007-08-09 05:57:00 Outpatient LEO ESTEBAN [facility] [id number] [facility] 2006-02-25 10:35:00 2006-02-25 10:35:00 Outpatient Eduardo CASTILLO [facility] [id number] [facility] 2006-01-19 06:06:00 2006-01-19 06:06:00 Outpatient LEO ESTEBAN [facility] [id number] [facility] 2003 09:26:00 2003 09:26:00 Outpatient Eduardo CASTILLO [facility] [id number] [facility] Results Test Description Test Time Test Comments Results Result Co mments Source [facility] gtukkfvky4193-66-17 04:35:00* Test Item Value Reference Range Interpretation Comme [facility] Urine Glucose (UA) (test cod e = 2349-9) Negative [facility] CtrBilirubin [id number] 04:35:00* Test Item Value Reference Range Interpretation Comme [facility] Urine Bilirubin (test code = 263154562) Negative [facility] CtrKetones [id number] 04:35:00* Test Item Value Reference Range Interpretation Comme [facility] Urine Ketones (test code = 37196157) 3+(LARGE) [facility] blood qzoluxpwu3094-01-87 04:35:00* Test Item Value Reference Range Interpretation Comme nts Urine Blood (test code = 868869-1) 3+ (LARGE) [facility] CtrpH [id number] 04:35:00* Test Item Value Reference Range Interpretation Comme [facility] Urine pH (test code = 2756-5) 7.500 [facility] CtrProtein [id number] 04:35:00* Test Item Value Reference Range Interpretation Comme [facility] Urine Protein (test code = 70402588) 1+ [facility] CtrUrobilinogen, urine, [id number] 04:35:00* Test Item Value Reference Range Interpretation Comme nts Urine Urobilinogen (test cod e = 561232412) 0.2 [facility] CtrUrine nitrate exjwemrre6752-35-75 04:35:00* Test Item Value Reference Range Interpretation Comme nts Urine Nitrate (test code = 66431-5) Negative [facility] CtrColor of Urine by Cmlz9045-25-68 04:35:00* Test Item Value Reference Range Interpretation Comme nts Urine Color (test code = 07592-9) Red [facility] [id number] 02:22:00* Test Item Value Reference Range Interpretation Comme nts Carbon Dioxide Level (test c ode = 18776964) 14 [facility] CtrAlcohol level, ucbjz0726-17-22 02:15:00* Test Item Value Reference Range Interpretation Comme nts Ethyl Alcohol Level (test co de = 298449800) < 10.0 [facility] CtrBilirubin sskov0843-21-38 02:13:00* Test Item Value Reference Range Interpretation Comme nts Total Bilirubin (test code = YQK0244) 0.5 [facility] CtrSerum or plasma urea nitrogen measurement (mass/volume)2024-12-15 02:13:00* Test Item Value Reference Range Interpretation Comme nts Blood Urea Nitrogen (test co de = 3094-0) 10 [facility] NqpXUK0165-15-05 02:13:00* Test Item Value Reference Range Interpretation Comme nts Aspartate Amino Transf (AST/ SGOT) (test code = GEI5000) 24 [facility] CtrCreatinine pzlcf5006-75-37 02:13:00* Test Item Value Reference Range Interpretation Comme nts Creatinine (test code = 998799405) 0.80 [facility] CtrEstimated glomerular filtration rate (GFR) mnrqrkfglhfpg8108-76-32 02:13:00* Test Item Value Reference Range Interpretation Comme nts Glomerular Filtration Rate C alc (test code = 876184765) > 60.00 [facility] CtrBUN/creatinine vuile2028-94-70 02:13:00* Test Item Value Reference Range Interpretation Comme nts BUN/Creatinine Ratio (test c ode = 89318871) 12.5 [facility] CtrBody fluid potassium vrgdacqqtsx8385-89-71 02:13:00* Test Item Value Reference Range Interpretation Comme nts Potassium Level (test code = 2821-7) 3.5 [facility] CtrAnion gap boelqshuhor2898-74-11 02:13:00* Test Item Value Reference Range Interpretation Comme nts Anion Gap (test code = 73643476) 26.5 [facility] CtrCalcium yffpx8431-16-54 02:13:00* Test Item Value Reference Range Interpretation Comme nts Calcium Level (test code = 43067560) 9.9 [facility] CtrGlobulin idq6589-93-14 02:13:00* Test Item Value Reference Range Interpretation Comme nts Globulin (test code = 292755614) 2.8 [facility] CtrALT (SGPT) ser/pvcc5260-62-86 02:13:00* Test Item Value Reference Range Interpretation Comme nts Alanine Aminotransferase (AL T/SGPT) (test code = 1742-6) 19 [facility] QpaYgpwsb1369-69-81 02:13:00* Test Item Value Reference Range Interpretation Comme nts Lipase (test code = 069983865) 81 [facility] CtrALP ser/axyo4583-13-78 02:13:00* Test Item Value Reference Range Interpretation Comme nts Total Alkaline Phosphatase ( test code = 6768-6) 62 [facility] CtrSerum beta human chorionic gonadotropic (BhCG) bsasnumld2567-07-21 02:12:00* Test Item Value Reference Range Interpretation Comme nts Serum Test, Qualit ative (test code = 2110-5) NEGATIVE [facility] CtrAbsolute eosinophil mprma5939-57-34 01:58:00* Test Item Value Reference Range Interpretation Comme nts Eosinophils # (Auto) (test c ode = BYJ6326) 0.04 [facility] CtrRBC migoq2223-04-73 01:58:00* Test Item Value Reference Range Interpretation Comme nts Red Blood Count (test code = 00424953) 4.31 [facility] KsuVxlzpxtlxn7342-02-79 01:58:00* Test Item Value Reference Range Interpretation Comme nts Hematocrit (test code = 56202128) 34.8 [facility] CtrMCV (mean corpuscular volume) determination 2024-12-15 01:58:00* Test Item Value Reference Range Interpretation Comme [facility] Mean Corpuscular Volume (tom t code = 34738-4) 80.7 [facility] CtrMean corpuscular hemoglobin (MCH) determination 2024-12-15 01:58:00* Test Item Value Reference Range Interpretation Comme [facility] Mean Corpuscular Hemoglobin (test code = 65576796) 27.6 [facility] CtrMean corpuscular hemoglobin concentration (MCHC) qnrnzcwxjsldq0914-73-78 01:58:00* Test Item Value Reference Range Interpretation Comme [facility] Mean Corpuscular Hemoglobin Concent (test code = 69463696) 34.2 [facility] CtrRBC distribution width coefficient of variation 2024-12-15 01:58:00* Test Item Value Reference Range Interpretation Comme [facility] Red Cell Distribution Width (test code = 59714243) 13.7 [facility] CtrPlatelet xxqme5071-51-58 01:58:00* Test Item Value Reference Range Interpretation Comme [facility] Platelet Count (test code = 05367536) 281 [facility] HospitalMean platelet fhtumr1628-72-28 01:58:00* Test Item Value Reference Range Interpretation Comme [facility] Mean Platelet Volume (test c ode = 80593109) 8.5 [facility] CtrNeutrophils seg % qgl4459-50-73 01:58:00* Test Item Value Reference Range Interpretation Comme nts Neutrophils (%) (Auto) (test code = 74209-6) 75.3 [facility] CtrAbsolute immature granulocyte flpkv6567-22-38 01:58:00* Test Item Value Reference Range Interpretation Comme nts Absolute Immature Granulocyt e (auto (test code = 46525-7) 0.02 [facility] CtrBasophil % dwbnbh0597-52-54 01:58:00* Test Item Value Reference Range Interpretation Comme nts Basophils (%) (Auto) (test c ode = 23709-7) 0.2 [facility] CtrBlood band neutrophils count (number/volume) 2024-12-15 01:58:00* Test Item Value Reference Range Interpretation Comme nts Neutrophils # (Auto) (test c ode = 36106-7) 7.15 [facility] CtrAbsolute lymphocyte jogko8215-68-96 01:58:00* Test Item Value Reference Range Interpretation Comme nts Lymphocytes # (Auto) (test c ode = 39642-4) 1.77 [facility] CtrAbsolute basophil ahbsy2454-96-98 01:58:00* Test Item Value Reference Range Interpretation Comme nts Basophils # (Auto) (test cod e = 80715550) 0.02 [facility] CtrAbsolute NRBC hebmj4920-08-78 01:58:00* Test Item Value Reference Range Interpretation Comme nts Nucleated Red Blood Cells # (test code = 099089976) 0 [facility] CtrCT + NG + TV, DNA, urine/qblr6823-74-85 00:00:00* Test Item Value Reference Range Interpretation Comme nts CT/NG (test code = CT/NG) NORMAL trichomonas vaginalis addon - swab (test code = trichomonas vaginalis addon - swab) [facility], phrwxo3230-48-44 10:57:42* Test Item Value Reference Range Interpretation Comme nts Strep Result (test code = St rep Result) negative [facility] GroupInfluenza virus A and B and SARS-CoV+SARS-CoV-2 (COVID- 19) Ag panel - Upper respiratory specimen byRapid rglecbfrjjr0318-13-87 10:56:07 * Test Item Value Reference Range Interpretation Comme nts RAPID SARS COV (test code = RAPID SARS COV) negative RAPID FLU A (test code = RAP ID FLU A) negative RAPID FLU B (test code = RAP ID FLU B) negative [facility] Groupurinalysis, kjfzkxrs6941-93-40 10:14:00* Test Item Value Reference Range Interpretation Comme nts Leukocytes (test code = Leukocytes) Negative Nitrite (test code = Nitrite) negative Urobilinogen (test code = Urobilinogen) .2 Protein (test code = Protein) 100 pH (test code = pH) 6.0 Blood (test code = Blood) Large Specific [place] (test code = Specific [place]) 1.030 Ketone (test code = Ketone) Large (160) Bilirubin (test code = Bilirubin) Moderate Glucose (test code = Glucose) Negative Appearance (test code = Appearance) Clear Color (test code = Color) Yellow [facility] W Auto Differential panel - Lgzxi0449-29-66 00:00:00 * Test Item Value Reference Range Interpretation Comme nts white blood count (test code = white blood count) 8.4 K/uL 4.0-11.5 red blood count (test code = red blood count) 4.91 M/uL 3.80-5.20 hemoglobin (test code = hemoglobin) 13.3 g/dL 10.5-15.7 hematocrit (test code = hematocrit) 39.8 % 34.0-50.0 mean corpuscular volume (otm t code = mean corpuscular volume) 81.1 fL 86.0-100.0 L mean corpuscular hemoglobin (test code = mean corpuscular hemoglobin) 27.1 pg 26.2-33.4 mean corpuscular HGB conc (t est code = mean corpuscular HGB conc) 33.4 g/dL 30.0-34.0 red cell distribution width (test code = red cell distribution width) 13.3 % 12.0-15.5 platelet count (test code = platelet count) 311 K/uL 165-450 mean platelet volume (test c ode = mean platelet volume) 8.4 fL 9.4-12.6 L neutrophils % (test code = neutrophils %) 82.3 % 44.4-80.1 H Ig% (test code = Ig%) 0.4 % 0.0-0.4 lymphocyte% (test code = lymphocyte%) 13.1 % 10.0-50.0 mono % (test code = mono %) 4.0 % 3.6-12.0 eos % (test code = eos %) 0.1 % 0.0-5.4 basophil % (test code = baso cristiane %) 0.1 % 0.1-1.2 absolute neutrophil count (t est code = absolute neutrophil count) 6.91 K/uL 1.56-6.13 H Ig# (test code = Ig#) 0.03 K/uL 0.00-0.03 lymph # (test code = lymph #) 1.10 K/uL 1.18-3.74 L mono # (test code = mono #) 0.34 K/uL 0.24-0.86 eos # (test code = eos #) 0.01 K/uL 0.04-0.36 L basophil # (test code = baso cristiane #) 0.01 K/uL 0.01-0.08 NRBC% (test code = NRBC%) 0 /100 WBC 0-0.2 NRBC# (test code = NRBC#) 0 K/uL [facility]Com[facility] 2000 panel - Serum or Plasma 2024-12-01 00:00:00* Test Item Value Reference Range Interpretation Comme nts glucose (test code = glucose) 96 mg/dL 74-106 blood urea nitrogen (test co de = blood urea nitrogen) 14 mg/dL 6-20 osmolality calculated,serum (test code = osmolality calculated,serum) 280 mOsm/kg 280-300 creatinine (test code = creatinine) 0.71 mg/dL 0.50-0.90 glomerular filtration rate ( test code = glomerular filtration rate) > 60.00 BUN/creatinine ratio (test c ode = BUN/creatinine ratio) 19.7 12.0-20.0 sodium level (test code = so dium level) 140 mmol/L 135-145 potassium level (test code = potassium level) 4.0 mmol/L 3.5-5.2 chloride level (test code = chloride level) 103 mmol/L 98-108 CO2 (test code = CO2) 19 mmol/L 21-32 L anion gap (test code = anion gap) 22.0 mEq/L 12.0-20.0 H calcium level (test code = calcium level) 10.9 mg/dL 8.6-10.0 H total protein (test code = t otal protein) 8.8 g/dL 6.6-8.7 H albumin (test code = albumin) 5.2 g/dL 3.5-5.2 globulin (test code = globulin) 3.6 g/dL 1.5-4.5 A/G ratio (test code = A/G ratio) 1.4 >1.0 bilirubin,total (test code = bilirubin,total) 0.5 mg/dL 0.0-1.2 AST/SGOT (test code = AST/SGOT) 24 U/L 15-32 ALT/SGPT (test code = ALT/SGPT) 35 U/L 0-33 H alkaline phosphatase, total (test code = alkaline phosphatase, total) 71 U/L 35-105 [facility] 09:35:00* Test Item Value Reference Range Interpretation Comme nts Flu (test code = Flu) negative [id number] 14:31:54* Test Item Value Reference Range Interpretation Comme nts Right (test code = Right) Type A Normal Left (test code = Left) Type A Normal [facility][U] XRAY ANKLE MIN 3 VWS RIGHT [id number] 14:56:00 Images acquired, not reported on this accession number.[facility] Physicians Notes <thead> Date/Time Note Provider Source [facility] [id number] 04:40:49 Future Tests Future scheduled test information is unavailable Pending Tests <thead> Test Name Ordered Date Scheduled Date Urine Specific [place] December 15, 2024 4:00a m Urine Leukocyte Esterase December 15, 2024 4:0 0am Urine RBC December 15, 2024 4:00am Urine WBC December 15, 2024 4:00am Urine Bacteria December 15, 2024 4:00am Urine Culture Reflexed December 15, 2024 4:00a m Urine Amphetamines Screen December 15, 2024 4: 00am Urine Barbiturates, Quantitative December 15, 2024 4:00am Urine Benzodiazepines Screen December 15, 2024 4:00am Urine Cannabinoids December 15, 2024 4:00am Urine Cocaine Metabolite December 15, 2024 4:0 0am Urine Opiates Screen December 15, 2024 4:00am Hydrocodone Level December 15, 2024 4:00am Urine Fentanyl Screen December 15, 2024 4:00am Urine Phencyclidine (PCP) Level December 15, 025 4:00am Methadone Level December 15, 2024 4:00am Propoxyphene Level December 15, 2024 4:00am Oxycodone Level December 15, 2024 4:00am Future Visits Future appointment information is unavailable Referrals to Other Providers <thead> Reason for Referral Referral Start Date Provider Provider Contact Information Provider Address NO PHYSICIAN DANNA AMAYA NP Work Phone : [phone] [facility] [id number] DANNA AMAYA NP Work Phone : [phone] [facility] [id number] [address] Work Phone: [phone] [facility] [id number] RANJANA FELICIANO MD Work Phone: [phone] [facility] [id number] ENTER NAME IN NOTES OTHER NO PHYSICIAN Future Procedures <thead> Procedure Name Ordered Date Scheduled Date URINALYSIS December 15, 2024 1:44am Febru porfirio 2024 1:44am URINE DRUG SCREEN December 15, 2024 1:44am Feb ruary 2024 1:44am Future Medications Future medication information is unavailable Patient Instructions <tbody> Molluscum Contagiosum, Pedia tric Hand Dermatitis, Easy-to-Antoinette d Gastritis, Adult, Easy-to-Re ad Cyclic Vomiting Syndrome, Ad ult Cyclic Vomiting Syndrome, Ad ult Ankle Sprain, [id number] Contusion [facility]
[2025-01-27] MEDS ORDERED: ONDANSETRON 4 MG/2 ML VIAL ONE (09:33)
[2025-01-27] MEDS ORDERED: LORazepam 2 MG/ML VIAL ONE (09:33)
[2025-01-27] MEDS ORDERED: FAMOTIDINE 20 MG/2 ML VIAL IV ONE (09:34)
[2025-01-27] MEDS ORDERED: MORPHINE 4 MG/ML SYR ONE (09:34)
[2025-01-27] MEDS ORDERED: NA CHLORIDE 0.9% 1,000 ML ONE ×2 (09:34→10:47)
[2025-01-27 09:44] LABS: Absolute Lymphocytes (CBC) 1.5 K/uL (0.7-4.9); Absolute Monocytes 0.8 K/uL (0.1-1.3); Absolute Neutrophil 9.5 K/uL (1.8-8.0); Basophils % 0.1 % (0-1.3); Eosinophils % 0.3 % (0-4.4); Hemoglobin 12.8 g/dL (12.0-15.0); Lymphocytes % 12.9 % (15.3-44.8); MCH 27.5 pg (27.0-35.0); MCHC 34.7 g/dL (32.0-36.0); MCV 79.2 fL (80-100); MPV 7.1 fL (7.6-11.3); Neutrophils % 79.7 % (41.7-73.7); Platelets 375 thou/uL (152-406); RBC Red Blood Cell Count 4.67 M/uL (3.86-4.86); Red Cell Distribution Width 14.7 % (12.1-15.2)
[2025-01-27 10:06] LABS: Albumin 4.7 g/dL (3.4-5.0); Albumin/Globulin Ratio 1.1 (1.1-1.8); Anion Gap 18.5 mEq/L (5.0-15.0); Bilirubin Total 0.7 mg/dL (0.2-1.0); Globulin 4.1 g/dL (2.3-3.5); Protein, Total 8.8 g/dL (6.4-8.2)
[2025-01-27 10:07] LABS: Potassium 3.5 mEq/L (3.5-5.1)
[2025-01-27 11:25] LABS: Specific Gravity 1.025 (1.005-1.030)
[2025-01-27 11:27] LABS: Specific Gravity 1.024 (1.005-1.030); Sqamous Epithelial <5 /HPF (None Seen); Urine Bacteria None Seen /HPF (<20); Urine Bilirubin NEGATIVE (Negative); Urine Blood Negative (Negative); Urine Clarity Extremely Turbid (Clear); Urine Color Yellow (Yellow); Urine Culture Reflex Order NOT NEEDED; Urine Glucose NEGATIVE (Negative); Urine Ketones 4+ (Over) (Negative); Urine Microscopic Reflex YN ORDER UMIC; Urine Mucus 4+ /HPF (None Seen); Urine Nitrite NEGATIVE (Negative); Urine Protein 1+ (Negative); Urine RBC <5 /HPF (None Seen); Urine Urobilinogen Normal (Normal)
--- NOTE | 2025-01-27 12:21 | RAD REPORT ---
EXAMINATION: CT Abdomen Pelvis W Contrast CLINICAL INDICATION: Female, 19 years old. ABD PAIN TECHNIQUE: CT abdomen and pelvis was performed, after the administration of IV contrast, as per [facility] protocol. Axial, sagittal and coronal reconstructions were obtained. One or more of the following dose reduction techniques were used: Automated exposure control, adjustment of the mA and k V according to patient size, and iterative reconstruction. Unless otherwise specified, incidental findings do not require dedicated imaging follow-up. COMPARISON: No prior exam. FINDINGS: LOWER CHEST: The visualized lung bases are clear. LIVER: Normal in size and contour. No focal lesion. BILIARY SYSTEM: Status post cholecystectomy. SPLEEN: Normal size. No focal lesion. PANCREAS: No mass, ductal dilation, or luca-pancreatic fluid. ADRENALS: Normal; no mass. KIDNEYS: Normal size and contour. No hydronephrosis. URINARY BLADDER: Decompressed limiting evaluation. GASTROINTESTINAL TRACT: No evidence of free air, significant intra-abdominal free fluid, bowel obstru ction or abscess. APPENDIX: Normal appendix. LYMPH NODES: No lymphadenopathy. MUSCULOSKELETAL: No acute or suspicious osseous abnormality. Bilateral L5 pars interarticularis defec ts without significant subluxation, likely developmental ADDITIONAL FINDINGS: None. IMPRESSION: No acute or concerning abnormalities seen in the abdomen or pelvis. Incidental findings as above.
--- NOTE | 2025-01-27 12:49 | ER ---
Nurse's Notes [facility] Name: Vi Haynes Age: 19 yrs Sex: Female : 2005 Arrival Date: 01/27/2025 Time: 08:59 Bed 20 Private MD: Diagnosis: Epigastric abdominal tenderness;Vomiting;UTI/ Urinary tract infection, site not specified Presentation: 01/27 09:25 Chief complaint: Parent and/or Guardian states: abd pain that began last night and kc6 worse this AM when she went to her GI MD. pt actively vomiting yellow fluid upon arrival. Coronavirus screen: At this time, the client does not indicate any symptoms associated with coronavirus-19. Ebola Screen: No symptoms or risks identified at this time. Initial Sepsis Screen: Does the patient meet any 2 criteria? No. Patient's initial sepsis screen is negative. Does the patient have a suspected source of infection? No. Patient's initial sepsis screen is negative. Risk Assessment: Do you want to hurt yourself or someone else? Patient reports no desire to harm self or others. Onset of symptoms was January 27, 2025. 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 - Infectious Disease History:: Denies. - Social history:: Smoking status: Reported history of juuling and/or vaping. Screenin:43 [facility] ED Fall Risk Assessment (Adult) History of falling in the last 3 months, hb including since admission No falls in past 3 months (0 pts) Confusion or Disorientation Yes (5 pts) Intoxicated or Sedated Yes (3 pts) Impaired Gait No (0 pts) Mobility Assist Device Used No (0 pt) Altered Elimination No (0 pt) Score/Fall Risk Level 3 or more points = High Risk Oriented to surroundings, Maintained a safe environment, Educated pt \T\ family on fall prevention, incl call for assistance when getting out of bed, Assessed \T\ reinforced patient's understanding of fall precautions. Abuse screen: Denies threats or abuse. Denies injuries from another. Nutritional screening: No deficits noted. Tuberculosis screening: No symptoms or risk factors identified. Assessment: 09:42 General: Appears in no apparent distress. Behavior is calm, cooperative. Pain: Pain hb currently is 10 out of 10 on a pain scale. Neuro: Level of Consciousness is awake, alert, obeys commands, Oriented to person, place, time, situation. Cardiovascular: Patient's skin is warm and dry. Respiratory: Respiratory effort is even, unlabored, Respiratory pattern is regular, symmetrical. GI: Reports lower abdominal pain, upper abdominal pain, nausea, vomiting. : No signs and/or symptoms were reported regarding the genitourinary system. EENT: No signs and/or symptoms were reported regarding the EENT system. Derm: Skin is pink, warm \T\ dry. Musculoskeletal: No signs and/or symptoms reported regarding the musculoskeletal system. 09:43 Reassessment: Pt refusing BP at this time. notified. Mother at bedside. hb Vital Signs: 07:15 BP 159 / 77; Pulse 80; Resp 16; Pulse Ox 94% ; me1 09:25 Pulse 76; Resp 18 S; Pulse Ox 100% on R/A; Weight 69.85 kg (R); Height 5 ft. 7 in. (R); kc6 Pain 10/10; 10:00 BP 143 / 76; Pulse 72; Resp 16; Pulse Ox 97% ; me1 11:00 BP 116 / 78; Pulse 62; Resp 16; Pulse Ox 100% ; me1 12:00 BP 124 / 82; Pulse 73; Resp 16; Pulse Ox 100% ; me1 13:00 BP 118 / 79; Pulse 76; Resp 16; Pulse Ox 98% ; me1 13:38 BP 122 / 81; Pulse 72; Resp 16; Temp 98.4; Pulse Ox 100% ; me1 09:25 Body Mass Index 24.12 (69.85 kg, 170.18 cm) kc6 09:25 Pain Scale: Adult kc6 ED Course: 09:02 Patient arrived in ED. cj3 09:05 Kayden Nath MD is Attending Physician. [facility] 09:27 Triage completed. kc6 09:27 Arm band placed on. kc6 09:36 CBC with Diff Sent. em1 09:36 CMP Sent. em1 09:36 Lipase Sent. em1 09:36 Initial lab(s) drawn, by me, sent to lab. Inserted saline lock: 20 gauge in right em1 wrist, using aseptic technique. Blood collected. Flushed with 10 mL NS. 09:43 Patient has correct armband on for positive identification. Bed in low position. Call light in reach. Side rails up X2. Adult w/ patient. Provided Education on: tests, result times, medications, fall precautions. 10:24 Cassie Ragsdale, JAMIL is Primary Nurse. me1 11:04 Urinalysis w/ reflexes Sent. me1 11:04 Urine collected: clean catch specimen. me1 11:14 Test, Serum Sent. me1 12:10 CT Abd/Pelvis - IV Contrast Only In Process Unspecified. EDMS 12:49 Nicolas Sebastian MD is Referral Physician. [facility] 13:43 No provider procedures requiring assistance completed. IV discontinued, intact, me1 bleeding controlled, No redness/swelling at site. Pressure dressing applied. Administered Medications: 09:41 Drug: Famotidine IVP 20 mg IVP once; dilute with 10 mL 0.9% NaCl; give over 2 minutes hb Route: IVP; Site: right wrist; 10:22 Follow up: Response: No adverse reaction aa5 09:41 Drug: NS 0.9% IV 1000 ml IV at 1 bolus Per protocol; to be given as a bolus over 60 hb minutes Route: IV; Rate: 1 bolus; Site: right wrist; 10:51 Follow up: Response: No adverse reaction; IV Status: Completed infusion; IV Intake: me1 1000ml 09:41 Drug: Ativan IVP 1 mg IVP once Route: IVP; Site: right wrist; hb 12:56 Follow up: Response: No adverse reaction; Anxiety decreased me1 09:42 Drug: Ondansetron IVP 4 mg IVP once; over 2 minutes Route: IVP; Site: right wrist; hb 10:22 Follow up: Response: No adverse reaction; Nausea is decreased aa5 09:42 Drug: morphine IVP or IV 4 mg IVP once over 4 mins Route: IVP; Infused Over: 4 mins; hb Site: right wrist; 10:22 Follow up: Response: No adverse reaction; Pain is decreased aa5 11:04 Drug: NS 0.9% IV 1000 ml IV at 1 bolus Per protocol; to be given as a bolus over 60 me1 minutes Route: IV; Rate: 1 bolus; Site: right wrist; 12:56 Follow up: Response: No adverse reaction; IV Status: Completed infusion; IV Intake: me1 1000ml 13:14 Not Given (not needed.): ativan1 mg IVP once me1 13:20 Drug: Rocephin IV 1 grams IV at per protocol once; Given slow IV push per pharmacy me1 instructions Route: IV; Rate: per protocol; Site: right forearm; 13:38 Follow up: Response: No adverse reaction; IV Status: Completed infusion me1 Medication: 09:44 VIS not applicable for this client. hb Intake: 10:51 IV: 1000ml; Total: 1000ml. me1 12:56 IV: 1000ml; Total: 2000ml. me1 Outcome: 12:49 Discharge ordered by . zoë 13:43 Discharged to home ambulatory, with family, me1 13:43 Condition: stable 13:43 Discharge instructions given to patient, Instructed on discharge instructions, follow up and referral plans. medication usage, Demonstrated understanding of instructions, follow-up care, medications, Prescriptions given X x5 13:45 Patient left the ED. me1 Signatures: Dispatcher [employer] Kayden Yuan MD MD cha Martinez, Eric em1 Arielle Garcia RN RN aa5 Earlene Wood RN RN Jolanta Novoa RN RN kc6 Cassie Ragsdale RN RN or1 Yue Stewart 3 Corrections: (The following items were deleted from the chart) 19:38 10:22 Arielle Garcia, JAMIL is Primary Nurse. aa5 aa5 19:38 10:24 Primary Nurse role handed off by Arielle Garcia RN or1 aa5
--- NOTE | 2025-01-27 12:49 | EDPHYS ---
Physician Documentation [facility] Name: Vi Haynes Age: 19 yrs Sex: Female : 2005 Arrival Date: 01/27/2025 Time: 08:59 Bed 20 Private MD: QUIQUE Physician Kayden Nath HPI: 01/27 11:00 This 19 yrs old Female presents to ER via Wheelchair with complaints of zoë Severe Abdominal Pain, Vomiting. 11:00 The patient presents to the emergency department with nausea, vomiting, abdominal pain, zoë of the right upper quadrant and left upper quadrant. Onset: The symptoms/episode began/occurred 2 day(s) ago. Possible causes: unknown. The symptoms are aggravated by nothing. The symptoms are alleviated by nothing. Associated signs and symptoms: Pertinent positives: abdominal pain, nausea, vomiting. Severity of symptoms: At their worst the symptoms were moderate in the emergency department the symptoms are unchanged. The patient has experienced similar episodes in the past, multiple times. 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 - Infectious Disease History:: Denies. - Social history:: Smoking status: Reported history of juuling and/or vaping. ROS: 11:01 Constitutional: Negative for fever, chills, and weight loss, Eyes: Negative for injury, zoë pain, redness, and discharge, ENT: Negative for injury, pain, and discharge, Neck: Negative for injury, pain, and swelling, Cardiovascular: Negative for chest pain, palpitations, and edema, Respiratory: Negative for shortness of breath, cough, wheezing, and pleuritic chest pain, Back: Negative for injury and pain, : Negative for injury, bleeding, discharge, and swelling, MS/Extremity: Negative for injury and deformity, Skin: Negative for injury, rash, and discoloration, Neuro: Negative for headache, weakness, numbness, tingling, and seizure, Psych: Negative for depression, anxiety, suicide ideation, homicidal ideation, and hallucinations, Allergy/Immunology: Negative for hives, rash, and allergies, Endocrine: Negative for neck swelling, polydipsia, polyuria, polyphagia, and marked weight changes, 11:01 Abdomen/GI: Positive for abdominal pain, nausea and vomiting, abdominal cramps, abdominal distension, of the epigastric area, right upper quadrant and left upper quadrant, Exam: 11:01 Constitutional: This is a well developed, well nourished patient who is awake, alert, zoë and in no acute distress. Head/Face: Normocephalic, atraumatic. Eyes: Pupils equal round and reactive to light, extra-ocular motions intact. Lids and lashes normal. Conjunctiva and sclera are non-icteric and not injected. Cornea within normal limits. Periorbital areas with no swelling, redness, or edema. ENT: Nares patent. No nasal discharge, no septal abnormalities noted. Tympanic membranes are normal and external auditory canals are clear. Oropharynx with no redness, swelling, or masses, exudates, or evidence of obstruction, uvula midline. Mucous membranes moist. Neck: Trachea midline, no thyromegaly or masses palpated, and no cervical lymphadenopathy. Supple, full range of motion without nuchal rigidity, or vertebral point tenderness. No Meningismus. Chest/axilla: Normal chest wall appearance and motion. Nontender with no deformity. No lesions are appreciated. Cardiovascular: Regular rate and rhythm with a normal S1 and S2. No gallops, murmurs, or rubs. Normal PMI, no JVD. No pulse deficits. Respiratory: Lungs have equal breath sounds bilaterally, clear to auscultation and percussion. No rales, rhonchi or wheezes noted. No increased work of breathing, no retractions or nasal flaring. Back: No spinal tenderness. No costovertebral tenderness. Full range of motion. Skin: Warm, dry with normal turgor. Normal color with no rashes, no lesions, and no evidence of cellulitis. MS/ Extremity: Pulses equal, no cyanosis. Neurovascular intact. Full, normal range of motion., bilateral aka Neuro: Awake and alert, GCS 15, oriented to person, place, time, and situation. Cranial nerves II-XII grossly intact. Motor strength 5/5 in all extremities. Sensory grossly intact. Cerebellar exam normal. Normal gait. 11:01 Abdomen/GI: Inspection: abdomen appears normal, Bowel sounds: normal, Palpation: mild abdominal tenderness, in the epigastric area, right upper quadrant and left upper quadrant, Liver: no appreciated palpable abnormalities, Hernia: not appreciated, 11:01 Back: pain, is absent, ROM is normal, normal spinal alignment noted, CVA tenderness, is absent, Vital Signs: 07:15 BP 159 / 77; Pulse 80; Resp 16; Pulse Ox 94% ; me1 09:25 Pulse 76; Resp 18 S; Pulse Ox 100% on R/A; Weight 69.85 kg (R); Height 5 ft. 7 in. (R); kc6 Pain 10/10; 10:00 BP 143 / 76; Pulse 72; Resp 16; Pulse Ox 97% ; me1 11:00 BP 116 / 78; Pulse 62; Resp 16; Pulse Ox 100% ; me1 12:00 BP 124 / 82; Pulse 73; Resp 16; Pulse Ox 100% ; me1 13:00 BP 118 / 79; Pulse 76; Resp 16; Pulse Ox 98% ; me1 13:38 BP 122 / 81; Pulse 72; Resp 16; Temp 98.4; Pulse Ox 100% ; me1 09:25 Body Mass Index 24.12 (69.85 kg, 170.18 cm) kc6 09:25 Pain Scale: Adult kc6 MDM: 09:05 Medical Screening Exam initiated zoë 11:06 Differential diagnosis: Nonspecific abd pain, gastritis, pancreatitis, appendicitis, zoë diverticulitis, viral gastroenteritis, gastroenteritis, bowel obstruction. Data reviewed: vital signs, nurses notes, lab test result(s), radiologic studies, CT scan. Consideration of Admission/Observation Escalation of care including admission/observation considered. I considered the following discharge prescriptions or medication management in the emergency department Medications were administered in the Emergency Department. See MAR. Independent interpretation of the following test(s) in the Emergency Department CT Scan: My interpretation is ct ab/pel. Test considered but Not performed: MRI: no mrcp. Historians other than the Patient: Parent: mom well informed. Care significantly affected by the following chronic conditions: anxiety, high chlesterol, gerd. Counseling: I had a detailed discussion with the patient and/or guardian regarding the historical points, exam findings, and any diagnostic results supporting the discharge/admit diagnosis, lab results, radiology results, the need for outpatient follow up, for definitive care, a family practitioner, a orthopedic mechanic. 01/27 09:06 Order name: CBC with Diff; Complete Time: 10:37 [facility] 01/27 09:06 Order name: CMP; Complete Time: 10:37 [facility] 01/27 09:06 Order name: Lipase; Complete Time: 10:37 [facility] 01/27 09:06 Order name: Test, Urine; Complete Time: 12:47 [facility] 01/27 09:06 Order name: Urinalysis w/ reflexes; Complete Time: 12:47 [facility] 01/27 10:41 Order name: Test, Serum; Complete Time: 12:47 [facility] 01/27 09:06 Order name: CT Abd/Pelvis - IV Contrast Only; Complete Time: 12:47 [facility] 01/27 09:06 Order name: IV Saline Lock; Complete Time: 09:36 [facility] 01/27 09:06 Order name: Labs collected and sent; Complete Time: 09:36 [facility] Administered Medications: 09:41 Drug: Famotidine IVP 20 mg IVP once; dilute with 10 mL 0.9% NaCl; give over 2 minutes hb Route: IVP; Site: right wrist; 10:22 Follow up: Response: No adverse reaction aa5 09:41 Drug: NS 0.9% IV 1000 ml IV at 1 bolus Per protocol; to be given as a bolus over 60 hb minutes Route: IV; Rate: 1 bolus; Site: right wrist; 10:51 Follow up: Response: No adverse reaction; IV Status: Completed infusion; IV Intake: me1 1000ml 09:41 Drug: Ativan IVP 1 mg IVP once Route: IVP; Site: right wrist; hb 12:56 Follow up: Response: No adverse reaction; Anxiety decreased me1 09:42 Drug: Ondansetron IVP 4 mg IVP once; over 2 minutes Route: IVP; Site: right wrist; hb 10:22 Follow up: Response: No adverse reaction; Nausea is decreased aa5 09:42 Drug: morphine IVP or IV 4 mg IVP once over 4 mins Route: IVP; Infused Over: 4 mins; hb Site: right wrist; 10:22 Follow up: Response: No adverse reaction; Pain is decreased aa5 11:04 Drug: NS 0.9% IV 1000 ml IV at 1 bolus Per protocol; to be given as a bolus over 60 me1 minutes Route: IV; Rate: 1 bolus; Site: right wrist; 12:56 Follow up: Response: No adverse reaction; IV Status: Completed infusion; IV Intake: me1 1000ml 13:14 Not Given (not needed.): ativan1 mg IVP once me1 13:20 Drug: Rocephin IV 1 grams IV at per protocol once; Given slow IV push per pharmacy me1 instructions Route: IV; Rate: per protocol; Site: right forearm; 13:38 Follow up: Response: No adverse reaction; IV Status: Completed infusion me1 Disposition Summary: 01/27/25 12:49 Discharge Ordered Notes: Location: Home zoë Problem: new zoë Symptoms: have improved zoë Condition: Stable zoë Diagnosis - Epigastric abdominal tenderness zoë - Vomiting zoë - UTI/ Urinary tract infection, site not specified zoë Followup: zoë - With: Private Physician - When: 2 - 3 days - Reason: Recheck today's complaints, Continuance of care, Re-evaluation by your physician Followup: zoë - With: Nicolas Sebastian MD - When: 2 - 3 days - Reason: Recheck today's complaints, Re-evaluation by your physician Discharge Instructions: - Discharge Summary Sheet zoë - Abdominal Pain, Adult zoë - Urinary Tract Infection, Adult zoë - Nausea and Vomiting, Adult, [id number] zoë - Urinary Tract Infection, Adult, [id number] zoë - Abdominal Pain, Adult, [id number] zoë Forms: - Medication Reconciliation Form zoë - Antibiotic Education zoë - Prescription Opioid Use zoë - Patient Portal Instructions [facility] - Leadership Thank You Letter [facility] Prescriptions: - ondansetron 4 mg Oral Tablet,disintegrating - take 1 tablet ORAL route every 8 hours for 5 days prn; 20 tablet; Refills: 0, [facility] Product Selection Permitted - promethazine 25 mg Rectal suppository - insert 1 suppository RECTAL route every 6 hours as needed for nausea and zoë vomiting; 15 suppository; Refills: 0, Product Selection Permitted - cefdinir 300 mg Oral capsule - take 1 capsule ORAL route daily for 5 days; 10 capsule; Refills: 0, Product zoë Selection Permitted - Pepcid 20 mg Oral tablet - take 1 tablet ORAL route every 12 hours for 21 days; 42 tablet; Refills: 0, [facility] Product Selection Permitted - dicyclomine 20 mg Oral tablet - take 1 tablet ORAL route 4 times per day; 28 tablet; Refills: 0, Product zoë Selection Permitted Signatures: Dispatcher [employer] EDMS Kayden Nath MD MD cha Baxter, Heather, RN RN Jolanta Novoa RN RN kc6 Cassie Ragsdale RN RN me1 Arielle Garcia RN aa5 Corrections: (The following items were deleted from the chart) 09: 09:07 CBC+H.LAB.BRZ ordered. EDMS EDMS : 09:07 COMPREHENSIVE METABOLIC PANEL+C.LAB.BRZ ordered. EDMS EDMS : 09:07 LIPASE+C.LAB.BRZ ordered. EDMS EDMS : 09:07 Test, Urine+UC.LAB.BRZ ordered. EDMS EDMS : 09:07 Urinalysis+U.LAB.BRZ ordered. EDMS EDMS : 09:07 Abdomen Limited+US.RAD.BRZ ordered. EDMS EDMS : 09:07 Abdomen Pelvis W Con+CT.RAD.BRZ ordered. EDMS EDMS
[2025-01-27] MEDS ORDERED: NA CHLORIDE 0.9% 100 ML ONE (13:16)
[2025-01-27] MEDS ORDERED: CEFTRIAXONE 1000 MG/VIAL ONE (13:16)
[2025-01-27 14:16] VITALS: BP 122/81; TEMP 98.4; O2SAT 100
== END 2025-01-27 13:45 | disposition home or self-care (01) ==
LOC: ER 08:59
DX: N39.0 Urinary tract infection, site not specified (principal); R11.10 Vomiting, unspecified
CPT/HCPCS: 96365; 96361; 85025; 81001; 36415; 84703; 81025; 83690; 80053; 74177; 96375; 99284; Q9967; J2405; J7030 ×2; J0696